=== PATIENT | female | born 1990 | race Two or more races ===

== ENCOUNTER 2024-07-26 08:25 | Day surgery (SDC) | payer MEDICAID, SELFPAY ==
[2024-07-25 10:58] VITALS: BMI 30.9
[2024-07-25 12:14] LABS: Basophils % (Auto) 0 % (0-2.5); Eosinophils # (Auto) 0.1 Thou/mm3 (0.0-0.5); Eosinophils % (Auto) 1 % (0-10); Hematocrit 39.2 % (36.0-46.0); Hemoglobin 13.1 g/dL (12.0-16.0); Immature Granulocytes % (Auto) 1 % (0-0); Immature Granulocytes Auto 0.04 Thou/mm3 (0.00-0.00); Lymphocytes # (Auto) 1.8 Thou/mm3 (1.0-4.8); Lymphocytes % (Auto) 21 % (10-50); Mean Corpuscular HGB Conc 33.4 g/dl (31.0-37.0); Mean Corpuscular Hemoglobin 28.7 pg (25.0-35.0); Mean Corpuscular Volume 86 fL (80-100); Monocytes # (Auto) 0.6 Thou/mm3 (0.0-0.8); Monocytes % (Auto) 7 % (0-12); Neutrophils # (Auto) 6.1 Thou/mm3 (1.8-7.7); Neutrophils % (Auto) 70 % (37-80); Nucleated Red Blood Cell % 0 /100 WBC (0); Platelet Count 257 Thou/mm3 (140-440); RDW Standard Deviation 40.5 fL (36.4-46.3); Red Blood Count 4.56 Miln/mm3 (4.00-5.20); White Blood Count 8.7 Thou/mm3 (3.6-11.0)
[2024-07-25 12:24] LABS: Beta HCG,Quantitative 1 mIU/mL (<5.0)
[2024-07-25 12:50] LABS: HIV (1&2) Antibody Rapid Non-Reactive
[2024-07-25 13:09] LABS: Hepatitis A Antibody IgM Non Reactive (Non React); Hepatitis B Core Antibody IgM Non Reactive (Non React); Hepatitis B Surface Antigen Non Reactive (Non React); Hepatitis C Antibody Non Reactive (Non React)
[2024-07-26] VITALS (8 sets, daily range): BP systolic 126–150; BP diastolic 78–99; PULSE 63–78; RESP 13–18; TEMP 36.3–36.8; O2SAT 97–100; BMI 29.7
[2024-07-26] MEDS: RINGERS LACTATED 1000 ML 1,000 ML 20 ML IV (09:13)
--- NOTE | 2024-07-26 09:26 | PD.GYNHP ---
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 FINNEY is a 34 year old female 34-year-old 5 para 3-0-2-3 previous 3 vaginal deliveries is admitted for laparoscopic bilateral salpingectomy procedure. Patient has been wanting to get this surgery done since last February. Patient has been given multiple times all the option of long-acting reversible contraception however has decided to undergo permanent procedure. Patient understands that this is a permanent surgery and no reversal is possible. Patient also understands the surgery and surgical risks include injury to neighboring organs of bladder and bowel, hemorrhage, infection Meds Home Medications and Allergies Home Medications ?Medication ?Instructions ?Recorded ?Confirmed ?Type No Known Home Medications 07/25/24 07/25/24 History Allergies Allergy/AdvReac Type Severity Reaction Status Date / Time No Known Allergies Allergy Verified 07/25/24 10:58 Exam - ORNAMENTAL IRON ERECTOR Constitutional Constitutional: no acute distress Routine HEENT Exam Head: Present normocephalic and atraumatic Eye: Present EOMI and PERRL ENT: Present mucous membranes moist Routine Neck Exam Neck: Present supple and trachea midline Routine Respiratory Exam Respiratory: Present chest non-tender, lungs clear, normal breath sounds and no resp distress Routine Cardiovascular Exam Cardiovascular: Present RRR Routine Abdominal Exam Abdominal: Present soft and normoactive bowel sounds Routine Extremities Exam Extremities: Present full ROM Routine Skin Exam Skin: Present intact and dry Routine Neurological Exam Neurological: Present alert, oriented X3 and CN II-XII intact Routine Psychiatric Exam Psychiatric: Present normal affect and normal thought process ORNAMENTAL IRON ERECTOR - Results Labs 07/25/24 11:22 Labs: Short CBC 07/25/24 Range/Units 11:22 WBC 8.7 (3.6-11.0) Thou/mm3 Hgb 13.1 (12.0-16.0) g/dL Hct 39.2 (36.0-46.0) % Plt Count 257 (140-440) Thou/mm3 Impressions Impression: 34-year-old 5 para 3-0-2-3 admitted for laparoscopic bilateral salpingectomy Counseled about LARC, declined Patient understands the chances of regret after this permanent procedure Tubes will be removed in entirety, including fimbria if possible, as decreased chances of ovarian malignancy in future life. Assessment and Plan Additional Assessment & Plan Additional Plan: Bilateral laparoscopic salpingectomy No antibiotics needed DVT prophylaxis Quality Measures Quality Measures VTE prophylaxis
--- NOTE | 2024-07-26 11:57 | SUR.PHASEI ---
pt arrived to PACU via gurney with oral airway present, breathing unlabored, dressing to abdomen clean, dry, and intact, peripad in place-clean and dry, VS stable, report from Jefry AVILA and Arie GRANADOS.
--- NOTE | 2024-07-26 12:18 | SUR.PHASEI ---
report to Donald AVILA
[2024-07-26] MEDS: ACETAMINOPHEN IVPB 1,000 MG/100 ML VIAL 250 MG IV (12:32)
[2024-07-26] MEDS: ONDANSETRON INJ 2 MG/ML INJ 2 ML 4 MG IV (12:33)
[2024-07-26] MEDS: fentaNYL CIT INJ 50 mCg/ML AMP 2ML IV (12:34)
--- NOTE | 2024-07-26 12:40 | SUR.PHASEII ---
pt able to tolerate ice chips without difficulty swallowing or nasuea/vomiting.
--- NOTE | 2024-07-26 13:23 | SUR.PHASEII ---
pt awake and alert, breathing unlabored on room air. v/s stable. pt dressing to abd x4 cdi. pt able to ambulate to wheelchair with steady gait. d/c instructions given with mother Daphney in room, all questions answered. pt d/c via wheelchair with all belongings.
--- NOTE | 2024-08-02 11:57 | ESOP_ITS ---
Operative Note - BUSINESS CONTINUITY PLANNER Procedure Date of procedure: 07/26/24 Procedure Performed: Bilateral salpingectomy, laparoscopic Indication: Desires sterilization Declined any other form of contraception including long-acting reversible contraception Pre-Op diagnosis: Same Post-Op diagnosis: Same Anesthesia type: General Procedure description: Patient was taken to the operating room. General anesthesia was given without any complications.? A time out was given confirming Hi Sheldon was undergoing the following, procedure,allergies, and surgeon.The patient was positioned in the dorsal lithotomy position. The bladder was emptied. The perineum was prepped with Betadine solution per routine.The abdomen was prepped with DuraPrep. Attention was then focused to the vagina.? A sponge placed in a ring forceps was placed in the posterior fornix and used as a uterine manip ulator.? The surgeon then changed gloves to continue proper sterile technique. Attention was diverted to the abdomen. An umblical incision was first made, Two towel clips were placed lateral to the umbilicus in order to elevate the abdominal wall.? A hemostat was used to assess the depth to the fascia. While applying countertraction by lifting the towel clips, a Veress needle was used to enter the peritoneal cavity, a initial abdominal pressure of 12 mmHg was noted upon entry. Veress needle used for initial pneumoperitoneum establishment. 5 mm port used for the direct trocar entry the abdomen was then insufflated with CO2 gas to 15mmHg, under the opti-view system was advanced into the peritoneal entry.? The Right lower quadrant was evaluated and a 5-mm incision was made . 5-mm trocar placed under camera surveillance.? Left side evaluated and a 5mm trocar inserted under optiview surveillance. On observation: Normal anatomy with bilateral ovaries and tubes no peritoneal pathology i dentified. Using a laparoscopic [place] grasper, gently right tube at the fimbrial end was picked up. Gradually , her right and left tube was from the mesosalpinx using Enseal device. Same repeated on the other side bilateral salpingectomy done, hemostasis ensured. All the bowel at the initial trocar entry point was examined no entry injuries were noted Estimated blood loss (ml): 5 Surgical staff Operation Date: 07/26/24 10:00 Case Staff FIRST HELPER: David Veronica RNpost hole digging machine operator: Jovani Worley Diagnosis Problem List Completed Was Problem List Reviewed/Reconciled?: Yes
== END 2024-07-26 13:23 | disposition home or self-care (01) ==
PROVIDERS: PCP Family Medicine; Referring Provider Student in an Organized Health Care Education/Training Program; Visit Provider Student in an Organized Health Care Education/Training Program
PROC: (CPT 58720; principal; 2024-07-26 09:45)
DX: Z30.2 Encounter for sterilization (principal)
CPT/HCPCS: 58661; 36415; 80074; 84702; 85025; 86703; 86850; 86900; 86901; A4217; A4649; J0131; J1100; J1885; J2250; J2405; J2704; J3010; J3490; J7120

== ENCOUNTER 2024-08-08 13:30 | Emergency (ER) | payer MEDICAID, SELFPAY ==
[2024-08-08 14:00] VITALS: BP 131/89; PULSE 60; RESP 18; TEMP 36.9; O2SAT 99; BMI 29.0
--- NOTE | 2024-08-08 14:00 | XR_ITS ---
Examination: CT brain head without contrast. 2-D sagittal coronal reconstructions Date and time of exam:August 08, 2024 1547 hours INDICATIONS: Onset left-sided headache beginning 2 days ago CTDI: vol (mGy):49.6 DLP: (mGycm):1011 Technique: Multiple CT axial sections of the brain have been obtained, 5 mm slice thickness. Contrast has not been administered. 2-D sagittal, coronal reconstructions have been obtained Low dose protocols were performed. One or more of the following dose reduction techniques were used; automated exposure control, adjustment of the mA and/or KV according to patient size, use of iterative reconstruction technique. Findings: No significant ventricular enlargement. Intra-axial or extra-axial hemorrhage density is not seen. No mass effect or midline shift Basal cisterns are not remarkable. Fourth ventricle is midline. Cranial vault intact. Impression: Negative for acute hemorrhage, mass effect or midline shift
--- NOTE | 2024-08-08 14:01 | PD.EDRME ---
Rapid Medical Screening Exam RME Arrival date/time: 08/08/24 13:30 34-year-old female presents the emergency department today for complaint of headache. Patient reports she had a tubal ligation 1 week ago Chief Complaint: Headache
[2024-08-08 14:18] LABS: Basophils % (Auto) 0 % (0-2.5); Eosinophils # (Auto) 0.1 Thou/mm3 (0.0-0.5); Eosinophils % (Auto) 1 % (0-10); Hematocrit 38.2 % (36.0-46.0); Hemoglobin 13.1 g/dL (12.0-16.0); Immature Granulocytes % (Auto) 0 % (0-0); Immature Granulocytes Auto 0.03 Thou/mm3 (0.00-0.00); Lymphocytes # (Auto) 1.5 Thou/mm3 (1.0-4.8); Lymphocytes % (Auto) 15 % (10-50); Mean Corpuscular HGB Conc 34.3 g/dl (31.0-37.0); Mean Corpuscular Hemoglobin 28.4 pg (25.0-35.0); Mean Corpuscular Volume 83 fL (80-100); Monocytes # (Auto) 0.5 Thou/mm3 (0.0-0.8); Monocytes % (Auto) 5 % (0-12); Neutrophils # (Auto) 8.1 Thou/mm3 (1.8-7.7); Neutrophils % (Auto) 79 % (37-80); Nucleated Red Blood Cell % 0 /100 WBC (0); Platelet Count 247 Thou/mm3 (140-440); RDW Standard Deviation 39.3 fL (36.4-46.3); Red Blood Count 4.62 Miln/mm3 (4.00-5.20); White Blood Count 10.3 Thou/mm3 (3.6-11.0)
[2024-08-08 14:37] LABS: Alanine Aminotransferase 16 U/L (10-49); Albumin, Serum 4.6 gm/dL (3.5-5.0); Albumin/Globulin Ratio 1.4 (1.2-2.2); Alkaline Phosphatase 96 U/L (46-116); Anion Gap 7 (7-16); Aspartate Amino Transferase 20 U/L (0-34); BUN/Creatinine Ratio 19 Ratio (12-20); Bilirubin,Total 0.4 mg/dL (0.3-1.2); Blood Urea Nitrogen 13 mg/dL (9-23); Calcium 9.3 mg/dL (8.3-10.6); Calcium (Corrected) 9.3 mg/dL (8.5-10.1); Carbon Dioxide 25.5 mMol/L (20.0-31.0); Chloride 103 mMol/L (98-107); Creatinine (Component) 0.7 mg/dL (0.6-1.3); Estimated Creatinine Clearance 132.4 mL/min (>60); Globulin 3.3 gm/dL (2.3-3.5); Glucose 119 mg/dL (74-106); Osmolality,Calculated 271 (275-295); Potassium 3.7 mMol/L (3.4-5.1); Sodium 135 mMol/L (136-145); Total Protein 7.9 gm/dL (5.7-8.2); eGFR > 60 See Note
[2024-08-08 14:58] LABS: Collection Type, Urine Clean Catch; WBC,Urine 0 /hpf (0-5)
--- NOTE | 2024-08-08 14:58 | PC.NURSE ---
no answer at [id number] x 1.
[2024-08-08 15:06] LABS: Bacteria,Urine Rare; Bilirubin,Urine Negative (Negative); Blood,Urine 3+ (Negative); Clarity,Urine Clear (Clear/Hazy); Color,Urine Yellow (Lt Yel-Yel); Culture Indicated,Urine Not Indicated; Glucose, Urine Negative (Negative); Ketones,Urine Negative (Negative); Leukocyte Esterase,Urine Negative (Negative); Nitrite,Urine Negative (Negative); PH,Urine 5.5 (5.0-7.0); Protein,Urine Trace (Neg - Trace); RBC,Urine 17 /hpf (0-3); Specific Gravity,Urine 1.026 (1.001-1.035); Squamous Epithelial Cell,Urine 5 /hpf (0-5); Urobilinogen,Urine Negative mg/dL (0.0-1.0)
[2024-08-08] MEDS: DiphenhydrAMINE 25 MG CAPSULE PO (15:08)
[2024-08-08] MEDS: HYDROcodone/APAP 5/325 TABLET 1 TAB PO (15:08)
[2024-08-08] MEDS: METOCLOPRAMIDE INJ 5 MG/ML VIAL 2 ML 10 MG IM (15:09)
--- NOTE | 2024-08-08 18:31 | PC.NURSE ---
CALLED X1 AT THIS TIME
--- NOTE | 2024-08-08 19:12 | PC.NURSE ---
PT CALLED FROM [facility] NO ANSWER
--- NOTE | 2024-08-08 19:34 | PC.NURSE ---
PT CALLED AT THIS TIME NA.
== END 2024-08-09 04:46 | disposition left against medical advice (07) ==
LOC: SERX 14:28
PROVIDERS: Nurse Practitioner Primary Care; Emergency Provider Emergency Medicine; PCP Family Medicine
DX: R51.9 Headache, unspecified (principal); Z53.29 Procedure and treatment not carried out because of patient's decision for other reasons
CPT/HCPCS: 36415; 70450; 80053; 81001; 85025; 96372; 99281; J2765; A9270